=== PATIENT | female | born 2000 | race Two or more races ===

== ENCOUNTER 2024-06-06 11:50 | Emergency (ER) | payer OTHER ==
[~2024-06-06] VITALS: Ht 149.9 cm; Wt 68.5 kg
[2024-06-06] MEDS ORDERED: PRENA1 TRUE CO1 EACH (12:44)
[2024-06-06] MEDS ORDERED: SINGULAIR10 MG PO (15:25)
[2024-06-06] MEDS ORDERED: NASAL MIST126 ML NASAL (15:25)
[2024-06-06] MEDS ORDERED: SODIUM CHLORIDE10 M3 IJ (15:25)
[2024-06-06] MEDS ORDERED: ZITHROMAX200 MG PO (15:25)
== END 2024-06-06 19:15 | disposition home or self-care (01) ==
LOC: ER 11:52
DX: O99.513 Diseases of the respiratory system complicating pregnancy, third trimester (principal); J32.9 Chronic sinusitis, unspecified; Z3A.28 28 weeks gestation of pregnancy; Z87.09 Personal history of other diseases of the respiratory system; F41.9 Anxiety disorder, unspecified